=== PATIENT | male | born 1945 | race Caucasian/White ===

== ENCOUNTER 2017-04-15 08:07 | Day surgery (SDC) | payer OTHER ==
[~2017-04-15 08:07] MED LIST: Metoclopramide 10 MG/2 ML SDV IV PRN
[2017-04-15] MEDS ORDERED: Propofol 1,000 MG/100 ML SDV ONE (10:00)
[2017-04-15 12:46] VITALS: BP 141/77
--- NOTE | 2017-04-15 15:04 | OR ---
DATE OF OPERATION: 04/15/2017 PREOPERATIVE DIAGNOSIS: Surveillance colonoscopy. POSTOPERATIVE DIAGNOSIS: Normal colonoscopy. OPERATION: Surveillance colonoscopy. COMPLICATIONS: None. DRAINS: None. SPECIMENS: None. ESTIMATED BLOOD LOSS: Zero. ANESTHESIA: General propofol anesthesia. INDICATION: Mr. Topete is a 71-year-old gentleman who is here for a 5-year surveillance colonoscopy. He does have a prior history of polyps. The above-mentioned procedure was explained. The risks, benefits, complications were explained. The patient understood and agreed and was brought to the operating room. DESCRIPTION OF PROCEDURE: The patient was brought to the operating room, placed in the left lateral decubitus position on the operating table. Satisfactory general propofol anesthesia was administered. We began by performing a rectal examination in which there were some large external skin tags suggestive of previous large external hemorrhoids. No active thrombosed hemorrhoids currently. I then placed the endoscope by finger introduction into the rectum and subsequently advanced this to the level of the cecum. Cecum was identified by the appendiceal orifice, the cecal strap, and ileocecal valve. Careful evaluation of the mucosa was performed on withdrawal. We were able to intubate the terminal ileum, which appeared normal. The remainder of the colon appeared normal. There were no polyps, no telangiectasias, no diverticula, or neoplastic growths. Retroflexion was performed within the rectum, which did not reveal any significant internal hemorrhoids. The colon was then decompressed and the endoscope was withdrawn. The patient tolerated the procedure well. There were no complications. Instrument count was correct. The patient was awoken in the OR and taken to the PACU for recovery. Recommend followup colonoscopy in 5 years. FRENCH /[id number]
== END 2017-04-15 12:00 | disposition home or self-care (01) ==
LOC: LB.SDS 08:07
PROVIDERS: ATTEND Surgery
DX: Z12.11 Encounter for screening for malignant neoplasm of colon (principal); K21.9 Gastro-esophageal reflux disease without esophagitis; Z98.890 Other specified postprocedural states; Z96.659 Presence of unspecified artificial knee joint
CPT/HCPCS: 45378; 82962; J7040; J3490

== ENCOUNTER 2022-12-20 09:19 | Emergency (ER) | payer OTHER ==
[2022-12-20 09:31] VITALS: BP 148/72; PULSE 62
[2022-12-20 09:44] LABS: BASOPHILS ABSOLUTE AUTO 0.05 K/uL (0.02-0.10); BASOPHILS PERCENT AUTO 0.4 % (0.0-0.5); EOSINOPHILS ABSOLUTE AUTO 0.06 K/uL (0.04-0.40); EOSINOPHILS PERCENT AUTO 0.5 % (1.0-5.0); HEMATOCRIT 44.9 % (40.0-54.0); LYMPHOCYTES ABSOLUTE AUTO 0.93 K/uL (1.50-4.00); LYMPHOCYTES PERCENT AUTO 8.3 % (20.0-40.0); MEAN CORPUSCULAR HEMOGLOBIN 30.6 pg (27.0-32.0); MEAN CORPUSCULAR HGB CONC 35.6 g/dL (31.0-35.0); MEAN CORPUSCULAR VOLUME 86 fL (76-96); MEAN PLATELET VOLUME 9.4 fL (6.0-10.0); MONOCYTES ABSOLUTE AUTO 0.76 K/uL (0.20-0.80); MONOCYTES PERCENT AUTO 6.8 % (3.0-10.0); NEUTROPHILS ABSOLUTE AUTO 9.44 K/uL (2.00-7.50); PLATELET COUNT,PLT 154 K/uL (150-400); RED BLOOD CELL COUNT 5.23 M/uL (4.50-6.50); RED CELL DISTRIBUTION WIDTH 13.5 % (11.0-16.0); WHITE BLOOD CELL COUNT,WBC 11.2 K/uL (4.0-11.0)
[2022-12-20 10:03] LABS: A/G RATIO 0.8 (0.8-2.0); ALANINE AMINOTRANSFERASE,ALT 27 U/L (12-78); ALBUMIN 3.4 g/dL (3.4-5.0); ALKALINE PHOSPHATASE 75 U/L (46-116); ANION GAP 9.7 mmol/L (5.0-15.0); ASPARTATE AMNIOTRANSFERASE,AST 13 U/L (15-37); BILIRUBIN TOTAL 0.7 mg/dL (0.0-1.0); BLOOD UREA NITROGEN,BUN 18 mg/dL (8-26); BUN/CREATININE RATIO 14.6 (6-25); C-REACTIVE PROTEIN 17.6 mg/L (0.0-3.0); CALCIUM 8.9 mg/dL (8.5-10.1); CARBON DIOXIDE,CO2 33.3 mmol/L (21.0-32.0); CHLORIDE,CL 99 mmol/L (98-107); CREATININE 1.23 mg/dL (0.70-1.30); ESTIMATED GFR 60 mL/min (>60); GLUCOSE RANDOM 134 mg/dL (74-100); PROTEIN TOTAL,TP 7.7 g/dL (6.4-8.2); SODIUM,NA 138 mmol/L (136-145)
[2022-12-20] MEDS: methylPREDNISolone Sodium Succinate 125 MG/2 ML SDV IM ONE (10:28)
[2022-12-20 10:47] LABS: SEDIMENTATION RATE MANUAL 3 mm/hr (0-20)
== END 2022-12-20 10:35 | disposition home or self-care (01) ==
LOC: LB.ED 09:19
DX: M10.9 Gout, unspecified (principal); I10 Essential (primary) hypertension; K21.9 Gastro-esophageal reflux disease without esophagitis; M19.90 Unspecified osteoarthritis, unspecified site; Z88.1 Allergy status to other antibiotic agents; Z79.82 Long term (current) use of aspirin; Z79.899 Other long term (current) drug therapy; Z79.02 Long term (current) use of antithrombotics/antiplatelets
CPT/HCPCS: 36415; 73110; 80053; 84550; 85025; 85651; 86140; 96372; 99283; J2930

== ENCOUNTER 2023-02-08 09:13 | Emergency (ER) | payer OTHER ==
[2023-02-08 09:37] VITALS: BP 116/62; PULSE 94
[2023-02-08 10:01] LABS: BASOPHILS ABSOLUTE AUTO 0.05 K/uL (0.02-0.10); BASOPHILS PERCENT AUTO 0.5 % (0.0-0.5); HEMATOCRIT 45.8 % (40.0-54.0); HEMOGLOBIN 16.6 g/dL (13.0-18.0); LYMPHOCYTES ABSOLUTE AUTO 1.09 K/uL (1.50-4.00); LYMPHOCYTES PERCENT AUTO 10.4 % (20.0-40.0); MEAN CORPUSCULAR HEMOGLOBIN 30.5 pg (27.0-32.0); MEAN CORPUSCULAR HGB CONC 36.2 g/dL (31.0-35.0); MEAN CORPUSCULAR VOLUME 84 fL (76-96); MEAN PLATELET VOLUME 9.5 fL (6.0-10.0); MONOCYTES ABSOLUTE AUTO 0.67 K/uL (0.20-0.80); MONOCYTES PERCENT AUTO 6.4 % (3.0-10.0); NEUTROPHILS PERCENT AUTO 81.7 % (45.0-70.0); PLATELET COUNT,PLT 146 K/uL (150-400); RED BLOOD CELL COUNT 5.44 M/uL (4.50-6.50); RED CELL DISTRIBUTION WIDTH 13.4 % (11.0-16.0); WHITE BLOOD CELL COUNT,WBC 10.5 K/uL (4.0-11.0)
[2023-02-08 10:20] LABS: ANION GAP 12.7 mmol/L (5.0-15.0); CALCIUM 8.8 mg/dL (8.5-10.1); CREATININE 1.14 mg/dL (0.70-1.30); EST CRCL DRUG DOSING (CG) 47.2 mL/min; POTASSIUM,K 3.7 mmol/L (3.5-5.1)
== END 2023-02-08 10:48 | disposition home or self-care (01) ==
LOC: LB.ED 09:13
DX: S93.401A Sprain of unspecified ligament of right ankle, initial encounter (principal); I10 Essential (primary) hypertension; K21.9 Gastro-esophageal reflux disease without esophagitis; E66.9 Obesity, unspecified; Z68.38 Body mass index [BMI] 38.0-38.9, adult; Z88.1 Allergy status to other antibiotic agents; Z79.82 Long term (current) use of aspirin; Z79.899 Other long term (current) drug therapy
CPT/HCPCS: 36415; 73600-RT; 80048; 84550; 85025; 99283